=== PATIENT | female | born 1965 | race Caucasian/White ===

== ENCOUNTER → 2025-09-05 07:55 | Outpatient (CLI) | payer OTHER, SELFPAY ==
--- NOTE | 2025-09-05 07:58 | DI.RAD.S_ITS ---
PROCEDURE: XR LUMBAR SPINE MIN 4V INDICATIONS: BACK PAIN TECHNIQUE: 5 views of the lumbar spine were acquired, including bilateral oblique views. COMPARISON: Outside Facility, CR, XR LUMBAR SPINE 2-3V, 05/07/2025, 9:51. FINDINGS: Bones: 5 nonrib-bearing vertebrae are present. There is normal bony alignment. Moderate multilevel disc height loss, facet joint arthropathy and hypertrophy. Mild anterior endplate osteophytes and vertebral body sclerosis. 6 mm anterolisthesis L4-L5. No vertebral body compression fractures. No suspicious bony lesions. Soft tissues: Surgical clips projected in right abdomen. Overlying bowel gas pattern is normal. No suspicious soft tissue calcifications. Oblique images: No pars defects. IMPRESSION: Moderate lumbar spondylosis with anterolisthesis of L4-L5. No significant change compared to prior radiograph 05/07/2025. Dictated by: Briseyda SALCEDO Interpreted: Yimi Cantrell MD on 09/05/2025 at 9:25 Transcribed by: EILEEN on 09/05/2025 at 9:28 Approved by: Yimi Cantrell M.D. on 09/05/2025 at 16:36
== END ==
PROVIDERS: PCP Family Medicine; Referring Provider Physical Medicine & Rehabilitation; Visit Provider Physical Medicine & Rehabilitation
DX: M47.816 Spondylosis without myelopathy or radiculopathy, lumbar region (principal); M25.78 Osteophyte, vertebrae; M43.16 Spondylolisthesis, lumbar region; M54.9 Dorsalgia, unspecified
CPT/HCPCS: 72110